=== PATIENT | female | born 1955 | race Caucasian/White ===

== ENCOUNTER 2019-07-31 08:54 | Outpatient (CLI) | payer BC, OTHER ==
--- NOTE | 2019-09-17 09:44 | ULT ---
Exam: Right upper quadrant ultrasound: HISTORY: Right upper quadrant abdominal pain for one week COMPARISON: None FINDINGS: Liver: Within normal limits Gallbladder: Small nonshadowing nonmobile echogenic focus is seen along the dependent portion of the gallbladder fundus measuring 0.4 cm likely corresponding to a gallbladder polyp. No gallbladder calculus is seen, and there is no gallbladder wall thickening or pericholecystic fluid. Common bile duct: The common duct is normal in caliber measuring 0.5 cm in diameter. Pancreas: Limited visualized portions of the pancreas demonstrate a normal sonographic appearance. Right kidney: Right kidney demonstrates a normal sonographic appearance. The right kidney measures 1 0.4 cm in length. IVC: The visualized IVC demonstrates a normal sonographic appearance. IMPRESSION: Small gallbladder polyp. No gallbladder calculi are seen, and the common duct is normal in caliber.
== END 2019-07-31 08:55 | disposition home or self-care (01) ==
LOC: BURULT 08:54
PROVIDERS: ATTEND Physician Assistant
DX: R10.11 Right upper quadrant pain (principal); K82.4 Cholesterolosis of gallbladder
CPT/HCPCS: 76705